=== PATIENT | female | born 1990 | race Caucasian/White ===

== ENCOUNTER 2018-01-07 02:34 | Emergency (ER) | payer MEDICAID ==
[2018-01-07 02:46] VITALS: BP 114/56
[2018-01-07] MEDS ORDERED: Sodium Chloride 0.9% 1,000 ML IV ONE (02:55)
[2018-01-07] MEDS ORDERED: cefTRIAXone 1 GM in Sodium Chloride 0.9% 100 ML IV ONE (02:56)
[2018-01-07] MEDS ORDERED: Albuterol/Ipratropium 3.0-0.5 MG/3 ML Neb Soln NEB ONE (02:58)
[2018-01-07] MEDS ORDERED: cefTRIAXone 1 GM AdvVial IV ONE (03:01)
--- NOTE | 2018-01-07 03:06 | EDM.PDOC ---
ED HPI GENERAL MEDICAL PROBLEM - General Chief Complaint: Respiratory Problem Stated Complaint: 13 WEEKS PREG CHEST PAIN LUNGS AND VOMMITTING Time Seen by Provider: 01/07/18 02:39 Source of Information: Reports: Patient History Limitations: Reports: No Limitations - History of Present Illness INITIAL COMMENTS - FREE TEXT/NARRATIVE: Patient partially 13 week with her fourth presents with acute onset of severe stuffy nose postnasal drainage sore throat productive cough of yellow-green phlegm along with now increasing shortness of breath and posttussive emesis. This all seemed to started this morning and progressed rapidly. Patient has had severe bronchitis in the past. She is a past smoker. She did have asthma as a child. Has not had any comp cases or troubles with this and is otherwise on vitamins. No diarrhea, no urinary symptoms. Pain from coughing so hard no abdominal pain. No vaginal bleeding or vaginal discharge. Generalized Pain Score (Numeric/FACES): 6 - Related Data Allergies Allergy/AdvReac Type Severity Reaction Status Date / Time fentanyl Allergy Hives Verified 01/07/18 02:46 hydromorphone HCl Allergy Hives Verified 01/07/18 02:46 [From Dilaudid] nalbuphine HCl [From Nubain] Allergy Hives Verified 01/07/18 02:46 oxycodone HCl [From Percocet] Allergy Hives Verified 01/07/18 02:46 Penicillins Allergy Hives Verified 01/07/18 02:46 codeine AdvReac Nausea Verified 01/07/18 02:46 Home Meds: Home Meds Albuterol [Proventil HFA] 2 puff INH Q4H PRN #1 inhaler 01/07/18 [Rx] Cephalexin [Keflex] 750 mg PO BID #14 capsule 01/07/18 [Rx] Vit #108/Iron/FA [ One Tablet] 1 tab PO DAILY 01/07/18 [History ] Past Medical History - Past Health History Medical/Surgical History: Denies Medical/Surgical History Respiratory History: Reports: Bronchitis, Recurrent, Pneumonia, Recurrent CLINICAL REHABILITATION LIAISON History: Reports: Musculoskeletal History: Reports: Fracture - Infectious Disease History Infectious Disease History: Reports: Measles - Past Surgical History HEENT Surgical History: Reports: Tonsillectomy GI Surgical History: Reports: Appendectomy Social & Family History - Tobacco Use Smoking Status *Q: Former Smoker Used Tobacco, but Quit: Yes Month/Year Tobacco Last Used: 2 year - Caffeine Use Caffeine Use: Reports: None - Recreational Drug Use Recreational Drug Use: No - Living Situation & Occupation Living situation: Reports: , with Family Occupation: Employed ED ROS GENERAL - Review of Systems Review Of Systems: See Below Constitutional: Reports: Fever. Denies: Chills, Night Sweats HEENT: Reports: Rhinitis, Sinus Problem Respiratory: Reports: Shortness of Breath, Cough, Sputum. Denies: Hemoptysis Cardiovascular: Reports: Chest Pain. Denies: Palpitations GI/Abdominal: Reports: Vomiting. Denies: Abdominal Pain, Diarrhea, Nausea : Denies: Dysuria, Urgency Musculoskeletal: Denies: Muscle Pain Neurological: Denies: Dizziness, Headache ED EXAM, GENERAL - Physical Exam Exam: See Below Exam Limited By: No Limitations General Appearance: Alert, WD/WN, No Apparent Distress Ears: Normal External Exam, Normal Canal, Normal TMs Throat/Mouth: Normal Inspection, Normal Voice, Other (Pharyngeal erythema no exudate) Head: Atraumatic Neck: Supple. No: Lymphadenopathy (L), Lymphadenopathy (R) Respiratory/Chest: Lungs Clear, Rhonchi. No: Decreased Breath Sounds, Wheezing , Stridor Cardiovascular: Regular Rate, Rhythm. No: No Edema GI/Abdominal: Normal Bowel Sounds, Soft, Non-Tender Extremities: No Pedal Edema Neurological: Alert, Oriented Psychiatric: Normal Affect, Normal Mood Skin Exam: Warm, Dry Course - Vital Signs Text/Narrative:: Suspect upper respiratory tract infection with now bronchitis acute onset with the current at 13 weeks. Reviewed allergies. Patient has taken Rocephin and Keflex in the past. With rapid onset of symptoms feel a more aggressive measures indicated. We'll treat her with IV fluids, screening CBC and a metabolic panel, give her DuoNeb treatment, hold off on x-rays and she's , treat empirically with Rocephin and follow this with Keflex. Last Recorded V/S: Last Vital Signs Temp 98.8 F 01/07/18 02:42 Pulse 101 H 01/07/18 02:42 Resp 20 01/07/18 02:42 BP 114/56 L 01/07/18 02:42 Pulse Ox 96 01/07/18 02:58 - Orders/Labs/Meds Orders: Active Orders 24 hr Category Date Time Status RT Aerosol Therapy [RC] ASDIRECTED Care 01/07/18 02:58 Active Labs: Laboratory Tests 01/07/18 01/07/18 Range/Units 03:00 03:00 WBC 12.43 H (3.98-10.04) K/mm3 RBC 4.09 (3.98-5.22) M/mm3 Hgb 12.6 (11.2-15.7) gm/L Hct 37.0 (34.1-44.9) % MCV 90.5 (79.4-94.8) fl MCH 30.8 (25.6-32.2) pg MCHC 34.1 (32.2-35.5) g/dl RDW Std Deviation 40.6 (36.4-46.3) fL Plt Count 257 (182-369) K/mm3 MPV 9.6 (9.4-12.3) fl Neut % (Auto) 79.6 H (34.0-71.1) % Lymph % (Auto) 11.7 L (19.3-51.7) % [place] % (Auto) 6.6 (4.7-12.5) % Eos % (Auto) 1.7 (0.7-5.8) Baso % (Auto) 0.2 (0.1-1.2) % Neut # (Auto) 9.90 H (1.56-6.13) K/mm3 Lymph # (Auto) 1.45 (1.18-3.74) K/mm3 [place] # (Auto) 0.82 H (0.24-0.36) K/mm3 Eos # (Auto) 0.21 (0.04-0.36) K/mm3 Baso # (Auto) 0.03 (0.01-0.08) K/mm3 Sodium 138 (136-145) mEq/L Potassium 3.6 (3.5-5.1) mEq/L Chloride 103 (98-107) mEq/L Carbon Dioxide 25 (21-32) mEq/L Anion Gap 13.6 (5-15) BUN 5 L (7-18) mg/dL Creatinine 0.7 (0.55-1.02) mg/dL Est Cr Clr Drug Dosing 112.01 mL/min Estimated GFR (MDRD) > 60 (>60) mL/min BUN/Creatinine Ratio 7.1 L (14-18) Glucose 102 (74-106) mg/dL Calcium 8.5 (8.5-10.1) mg/dL Total Bilirubin 0.5 (0.2-1.0) mg/dL AST 15 (15-37) U/L ALT 19 (14-59) U/L Alkaline Phosphatase 66 (46-116) U/L Total Protein 6.9 (6.4-8.2) g/dl Albumin 3.2 L (3.4-5.0) g/dl Globulin 3.7 gm/dL Albumin/Globulin Ratio 0.9 L (1-2) Meds: Medications Discontinued Medications Generic Name Dose Route Start Last Admin Trade Name Freq PRN Reason Stop Dose Admin Albuterol/Ipratropium 3 ml 01/07/18 02:58 01/07/18 03:07 Duoneb 3.0-0.5 Mg/3 Ml NEB 01/07/18 02:59 3 ml ONETIME ONE Administration Ceftriaxone Sodium Confirm 01/07/18 03:01 Rocephin Administered 01/07/18 03:02 Dose 1 gm IV .STK-MED ONE Ceftriaxone Sodium 1 gm/ 100 mls @ 200 mls/hr 01/07/18 02:56 01/07/18 03:05 Sodium Chloride IV 01/07/18 03:25 200 mls/hr ONETIME ONE Administration Sodium Chloride 1,000 mls @ 1,000 mls/hr 01/07/18 02:55 01/07/18 03:05 Normal Saline IV 01/07/18 03:54 1,000 mls/hr ONETIME ONE Administration - Radiology Interpretation Free Text/Narrative:: Bedside transabdominal ultrasound was performed and shows good movement and heart beat is approximately 130 - Re-Assessments/Exams Free Text/Narrative Re-Assessment/Exam: 01/07/18 03:31 CBC white count is 12,400 hemoglobin and hematocrit are normal Departure - Departure Time of Disposition: 04:05 Disposition: Home, Self-Care 01 Condition: Fair Clinical Impression: Acute bronchitis Qualifiers: Bronchitis organism: unspecified organism Qualified Code(s): J20.9 - Acute bronchitis, unspecified Qualifiers: Weeks of gestation: 13 weeks Qualified Code(s): Z3A.13 - 13 weeks gestation of - Discharge Information Prescriptions: Albuterol [Proventil HFA] 2 puff INH Q4H PRN #1 inhaler PRN Reason: Cough Cephalexin [Keflex] 750 mg PO BID #14 capsule Instructions: Shortness of Breath, Adult, [id number], Acute Bronchitis, Adult , [id number] Forms: ED Department Discharge Additional Instructions: Rest, drink plenty of fluids, may use Robitussin for cough. Follow up with your primary care provider later this week, return sooner however if worsening cough , more short of breath, persistent fevers, vomiting, worse - My Orders Last 24 Hours: My Active Orders 01/07/18 02:58 RT Aerosol Therapy [RC] ASDIRECTED - Assessment/Plan Last 24 Hours: My Active Orders 01/07/18 02:58 RT Aerosol Therapy [RC] ASDIRECTED
== END 2018-01-07 04:18 | disposition home or self-care (01) ==
LOC: JD.ED 02:34
DX: O99.511 Diseases of the respiratory system complicating pregnancy, first trimester (principal); J20.9 Acute bronchitis, unspecified; Z88.0 Allergy status to penicillin; Z88.5 Allergy status to narcotic agent; Z88.8 Allergy status to other drugs, medicaments and biological substances; Z87.891 Personal history of nicotine dependence; Z3A.13 13 weeks gestation of pregnancy
CPT/HCPCS: 36415; 80053; 85025; 94640; 96361; 96365; 99284; J0696; J7030; J7040; 99283; J7620-GY

== ENCOUNTER 2021-04-05 18:20 | Emergency (ER) | payer MEDICAID ==
--- NOTE | 2021-04-05 20:09 | CR ---
Left ankle: 3 views of the left ankle were obtained. Comparison: No prior ankle study is available. Ankle mortise is symmetric. No fracture, dislocation or other bony abnormality is seen. Impression: 1. Nothing acute is seen on left ankle study. Diagnostic code #1
--- NOTE | 2021-04-05 20:35 | EDM.PDOC ---
ED HPI GENERAL MEDICAL PROBLEM - General Chief Complaint: Lower Extremity Injury/Pain Stated Complaint: L ANKLE INJURY Time Seen by Provider: 04/05/21 19:30 Source of Information: Reports: Patient, RN Notes Reviewed History Limitations: Reports: No Limitations - History of Present Illness INITIAL COMMENTS - FREE TEXT/NARRATIVE: Patient is a 30-year-old female presenting to the emergency department with complaints of left ankle pain. Reports she was walking down steps and she missed the last step. She inverted her ankle. Reports hearing a pop. She has been unable to walk on it since that time. Denies any previous injuries to this joint. 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 Left Ankle Pain Score (Numeric/FACES): 6 - Related Data Allergies Allergy/AdvReac Type Severity Reaction Status Date / Time fentanyl Allergy Hives Verified 11/23/18 20:43 hydromorphone HCl Allergy Hives Verified 11/23/18 20:43 [From Dilaudid] nalbuphine HCl [From Nubain] Allergy Hives Verified 11/23/18 20:43 oxycodone HCl [From Percocet] Allergy Hives Verified 11/23/18 20:43 Penicillins Allergy Hives Verified 11/23/18 20:43 codeine AdvReac Nausea Verified 11/23/18 20:43 Home Meds: Home Meds Acetaminophen with Codeine [Tylenol with Codeine #3 Tablet] 1 - 2 each PO Q4H #20 tablet 11/23/18 [Rx] Dextroamphetamine/Amphetamine [Adderall 10 mg Tablet] 10 mg PO DAILY 04/05/21 [History] QUEtiapine [SEROquel] 50 mg PO BEDTIME 04/05/21 [History] lamoTRIgine [Lamotrigine] 10 mg PO BEDTIME 04/05/21 [History] Past Medical History - Past Health History Medical/Surgical History: Denies Medical/Surgical History HEENT History: Reports: Impaired Vision Respiratory History: Reports: Bronchitis, Recurrent, Pneumonia, Recurrent TRANSLATOR DEAF History: Reports: Musculoskeletal History: Reports: Fracture Psychiatric History: Reports: Anxiety, Depression - Infectious Disease History Infectious Disease History: Reports: Chicken Pox, Novel Coronavirus - Past Surgical History HEENT Surgical History: Reports: Tonsillectomy GI Surgical History: Reports: Appendectomy Social & Family History - Family History Family Medical History: No Pertinent Family History - Tobacco Use Tobacco Use Status *Q: Current Every Day Tobacco User Years of Tobacco use: 2 Packs/Tins Daily: 0.5 - Caffeine Use Caffeine Use: Reports: Coffee, Energy Drinks, Soda, Tea - Recreational Drug Use Recreational Drug Use: No - Living Situation & Occupation Living situation: Reports: , with Family Occupation: Employed Review of Systems - Review of Systems Review Of Systems: Comprehensive ROS is negative, except as noted in HPI. ED EXAM, GENERAL - Physical Exam Exam: See Below Exam Limited By: No Limitations General Appearance: Alert, WD/WN, No Apparent Distress Respiratory/Chest: No Respiratory Distress, Lungs Clear, Normal Breath Sounds, No Accessory Muscle Use, Chest Non-Tender Cardiovascular: Normal Peripheral Pulses, Regular Rate, Rhythm, No Edema, No Gallop, No JVD, No Murmur, No Rub Extremities: Other (Mild swelling and tenderness to palpation over the lateral malleolus of the left ankle. No obvious deformity or ecchymosis.) Neurological: Alert, Oriented, Normal Cognition Psychiatric: Normal Affect, Normal Mood Skin Exam: Warm, Dry, Intact, Normal Color, No Rash Course - Vital Signs Last Recorded V/S: Last Vital Signs Temp 98.4 F 04/05/21 20:35 Pulse 95 04/05/21 20:35 Resp 16 04/05/21 20:35 BP 119/80 04/05/21 20:35 Pulse Ox 100 04/05/21 20:35 - Orders/Labs/Meds Orders: Active Orders 24 hr Category Date Time Status Communication Order [RC] ASDIRECTED Care 04/05/21 19:22 Active Communication Order [RC] ASDIRECTED Care 04/05/21 19:22 Active Communication Order [RC] ROUTINE Care 04/05/21 19:22 Active DME for Discharge [COMM] Routine Oth 04/05/21 20:35 Ordered Peripheral IV Insertion Adult [OM.PC] Stat Oth 04/05/21 19:22 Ordered - Re-Assessments/Exams Free Text/Narrative Re-Assessment/Exam: 04/05/21 20:37 Radiologist read of right ankle x-ray shows no acute abnormalities. Discussed with patient that she is likely suffering from his train of her lateral ligaments. She was placed in stirrup splint and provided crutches. Recommend follow-up in 1 week if not significantly improved. Discharge instructions as document. Departure - Departure Time of Disposition: 20:37 Disposition: Home, Self-Care 01 Condition: Good Clinical Impression: Ankle sprain Qualifiers: Encounter type: initial encounter Involved ligament of ankle: unspecified ligament Laterality: left Qualified Code(s): S93.402A - Sprain of unspecified ligament of left ankle, initial encounter - Discharge Information *PRESCRIPTION DRUG MONITORING PROGRAM REVIEWED*: No *COPY OF PRESCRIPTION DRUG MONITORING REPORT IN PATIENT CHERRIE: No Instructions: Ankle Sprain Referrals: Nikki Shields PA-C [Primary Care Provider] - Forms: ED Department Discharge Additional Instructions: Wear the stirrup splint to support the joint. Use crutches as needed. Ice and elevate the extremity when at rest for the next few days. Use Tylenol and ibuprofen as needed for discomfort. If not significantly better in 1 week, recommend follow-up in the clinic. Sepsis Event Note (ED) - Focused Exam Vital Signs: Vital Signs Temp Pulse Resp BP Pulse Ox 04/05/21 20:35 98.4 F 95 16 119/80 100 - My Orders Last 24 Hours: My Active Orders 04/05/21 19:22 Communication Order [RC] ASDIRECTED Communication Order [RC] ASDIRECTED Communication Order [RC] ROUTINE Peripheral IV Insertion Adult [OM.PC] Stat 04/05/21 20:35 DME for Discharge [COMM] Routine - Assessment/Plan Last 24 Hours: My Active Orders 04/05/21 19:22 Communication Order [RC] ASDIRECTED Communication Order [RC] ASDIRECTED Communication Order [RC] ROUTINE Peripheral IV Insertion Adult [OM.PC] Stat 04/05/21 20:35 DME for Discharge [COMM] Routine
[2021-04-05 20:37] VITALS: BP 119/80; PULSE 95
== END 2021-04-05 21:05 | disposition home or self-care (01) ==
LOC: JD.ED 18:20
DX: S93.402A Sprain of unspecified ligament of left ankle, initial encounter (principal); Z88.0 Allergy status to penicillin; Z88.5 Allergy status to narcotic agent; Z88.8 Allergy status to other drugs, medicaments and biological substances; Z86.16 Personal history of COVID-19; Z72.0 Tobacco use; X50.1XXA Overexertion from prolonged static or awkward postures, initial encounter
CPT/HCPCS: 73610-26-LT; 73610-LT; 99283-25

== ENCOUNTER 2022-05-16 11:05 | Emergency (ER) | payer MEDICAID ==
[2022-05-16] MEDS ORDERED: Acetaminophen 325 MG Tab PO ONE (13:45)
[2022-05-16] MEDS ORDERED: hydrOXYzine HCl 25 MG Tab PO ONE (15:20)
[2022-05-16 15:26] VITALS: BP 135/73; PULSE 93
== END 2022-05-16 16:30 ==
LOC: JD.ED 11:05
DX: F32.A Depression, unspecified (principal); F41.9 Anxiety disorder, unspecified; R45.851 Suicidal ideations; Z88.0 Allergy status to penicillin; Z88.5 Allergy status to narcotic agent; Z88.8 Allergy status to other drugs, medicaments and biological substances; Z86.16 Personal history of COVID-19; Z20.822 Contact with and (suspected) exposure to COVID-19
CPT/HCPCS: 36415; 80053; 80143; 80179; 80306; 80307; 81025; 84443; 85007; 85027; 87635; 93005; 99285; A9270; U0002

== ENCOUNTER 2022-09-21 01:27 | Emergency (ER) | payer MEDICAID ==
[2022-09-21] MEDS ORDERED: Ondansetron 4 MG/2 ML SDV IVPUSH ONE (01:40)
[2022-09-21] MEDS ORDERED: Sodium Chloride 0.9% 1,000 ML IV SCH (01:45)
[2022-09-21 01:55] LABS: BASOPHILS ABSOLUTE AUTO 0.05 K/mm3 (0.01-0.08); BASOPHILS PERCENT AUTO 0.6 % (0.1-1.2); EOSINOPHILS ABSOLUTE AUTO 0.12 K/mm3 (0.04-0.36); EOSINOPHILS PERCENT AUTO 1.4 (0.7-5.8); HEMOGLOBIN 13.1 gm/dl (11.2-15.7); IMMATURE GRAN ABSOLUTE AUTO 0.02 K/mm3 (0.00-0.10); IMMATURE GRAN PERCENT AUTO 0.2 % (<=1.0); LYMPHOCYTES ABSOLUTE AUTO 3.96 K/mm3 (1.18-3.74); LYMPHOCYTES PERCENT AUTO 44.8 % (19.3-51.7); MEAN CORPUSCULAR HEMOGLOBIN 30.3 pg (25.6-32.2); MEAN CORPUSCULAR HGB CONC 32.8 g/dl (32.2-35.5); MEAN CORPUSCULAR VOLUME 92.6 fl (79.4-94.8); MEAN PLATELET VOLUME 9.1 fl (9.4-12.3); MONOCYTES ABSOLUTE AUTO 0.63 K/mm3 (0.24-0.36); MONOCYTES PERCENT AUTO 7.1 % (4.7-12.5); NEUTROPHILS ABSOLUTE AUTO 4.05 K/mm3 (1.56-6.13); NEUTROPHILS PERCENT AUTO 45.9 % (34.0-71.1); PLATELET COUNT,PLT 314 K/mm3 (182-369); RED BLOOD CELL COUNT 4.32 M/mm3 (3.98-5.22); WHITE BLOOD CELL COUNT,WBC 8.83 K/mm3 (3.98-10.04)
[2022-09-21 02:16] LABS: A/G RATIO 1.1 (1-2); ALBUMIN 3.7 g/dl (3.4-5.0); ANION GAP 14.1 (5-15); BILIRUBIN TOTAL 0.3 mg/dL (0.2-1.0); BUN/CREATININE RATIO 12.2 (14-18); CALCIUM 8.5 mg/dL (8.5-10.1); CREATININE 0.9 mg/dL (0.55-1.02); EST CRCL DRUG DOSING (CG) 83.23 mL/min; ETHANOL BLOOD MEDICAL 0.12 gm% (0.00); MAGNESIUM 2.1 mg/dL (1.8-2.4); POTASSIUM,K 3.1 mEq/L (3.5-5.1)
[2022-09-21] MEDS ORDERED: Potassium Chloride 20 MEQ Tab.ER PO ONE (04:08)
[2022-09-21] MEDS ORDERED: Ibuprofen 600 MG Tab PO ONE (05:18)
[2022-09-21 05:40] LABS: BARBITURATE SCREEN,URINE NEGATIVE (CUTOFF=200); BENZODIAZEPINES SCREEN,URINE NEGATIVE (CUTOFF=150); BUPRENORPHINE SCREEN,URINE NEGATIVE (CUTOFF=10); METHADONE SCREEN, URINE NEGATIVE (CUTOFF=200); METHAMPHETAMINES SCREEN, URINE NEGATIVE (CUTOFF=500); OXYCODONE SCREEN,URINE NEGATIVE (CUT0FF=100); PROPOXYPHENE SCREEN,URINE NEGATIVE (CUTOFF=300); THC SCREEN,URINE 20 NG/ML NEGATIVE (CUTOFF=50)
[2022-09-21 05:43] LABS: AMPHETAMINES SCREEN, URINE NEGATIVE (CUTOFF=500)
[2022-09-21] MEDS ORDERED: Ondansetron 4 MG Tab.DIS PO ONE (06:46)
[2022-09-21 08:37] VITALS: BP 118/80; PULSE 82
== END 2022-09-21 07:00 | disposition home or self-care (01) ==
LOC: JD.ED 01:27
DX: R11.2 Nausea with vomiting, unspecified (principal); F10.129 Alcohol abuse with intoxication, unspecified; Z88.6 Allergy status to analgesic agent; Z88.0 Allergy status to penicillin; Z88.5 Allergy status to narcotic agent; Z79.899 Other long term (current) drug therapy; Z86.16 Personal history of COVID-19; Z90.49 Acquired absence of other specified parts of digestive tract; Z87.891 Personal history of nicotine dependence
CPT/HCPCS: 36415; 80053; 80306; 80307; 83735; 85025; 96361; 96374; 99284; A9270; J2405; J7030; 99283

== ENCOUNTER 2023-04-06 14:39 | Emergency (ER) | payer BC, MEDICAID ==
[2023-04-06] MEDS ORDERED: Ketorolac 60 MG/2 ML SDV IM ONE (18:03)
[2023-04-06 19:34] VITALS: BP 112/80; PULSE 91
== END 2023-04-06 19:16 | disposition home or self-care (01) ==
LOC: JD.ED 14:39
DX: S00.12XA Contusion of left eyelid and periocular area, initial encounter (principal); S10.91XA Abrasion of unspecified part of neck, initial encounter; S50.312A Abrasion of left elbow, initial encounter; S60.512A Abrasion of left hand, initial encounter; Z86.16 Personal history of COVID-19; Z88.6 Allergy status to analgesic agent; Z88.5 Allergy status to narcotic agent; Z88.0 Allergy status to penicillin; Z88.8 Allergy status to other drugs, medicaments and biological substances; Y04.0XXA Assault by unarmed brawl or fight, initial encounter; Y92.59 Other trade areas as the place of occurrence of the external cause
CPT/HCPCS: 73080; 73090; 73130; 96372; 99283; J1885

== ENCOUNTER 2024-12-30 16:37 | Emergency (ER) | payer BC ==
[2024-12-30 16:54] VITALS: BP 116/88; PULSE 124
[2024-12-30 17:39] LABS: BASOPHILS ABSOLUTE AUTO 0.1 K/mm3 (0.0-0.2); BASOPHILS PERCENT AUTO 0.7 % (0.0-1.0); EOSINOPHILS ABSOLUTE AUTO 0.0 K/mm3 (0.0-0.4); EOSINOPHILS PERCENT AUTO 0.5 % (0.0-6.0); IMMATURE GRAN ABSOLUTE AUTO 0.03 K/mm3 (0.00-0.05); IMMATURE GRAN PERCENT AUTO 0.3 % (0.0-0.4); LYMPHOCYTES ABSOLUTE AUTO 2.5 K/mm3 (1.0-4.8); LYMPHOCYTES PERCENT AUTO 28.4 % (24.0-44.0); MEAN PLATELET VOLUME 9.3 fl (9.4-12.3); MONOCYTES ABSOLUTE AUTO 0.6 K/mm3 (0.0-0.8); MONOCYTES PERCENT AUTO 7.0 % (0.0-8.0); NEUTROPHILS ABSOLUTE AUTO 5.6 K/mm3 (1.8-7.7); NEUTROPHILS PERCENT AUTO 63.1 % (41.0-71.0); NRBC ABSOLUTE 0.00 (0.00-0.02); NRBC PERCENT 0.0 % (0.0-0.2); PLATELET COUNT,PLT 289 K/mm3 (150-400); RED BLOOD CELL COUNT 4.91 M/mm3 (4.10-5.30); WHITE BLOOD CELL COUNT,WBC 8.86 K/mm3 (3.9-11.3)
[2024-12-30] MEDS: Lactated Ringers 1,000 ML IV STA (17:51)
[2024-12-30] MEDS: Sodium Chloride 0.9% 10 ML Syringe FLUSH PRN (17:52)
[2024-12-30 18:14] LABS: LACTIC ACID 0.7 mmol/L (0.4-2.0)
[2024-12-30 18:21] LABS: A/G RATIO 1.2 (1-2); ALANINE AMINOTRANSFERASE,ALT 28.0 U/L (14-59); ASPARTATE AMNIOTRANSFERASE,AST 20.0 U/L (15-37); BILIRUBIN TOTAL 0.7 mg/dL (0.2-1.0); BLOOD UREA NITROGEN,BUN 7.0 mg/dL (7-18); CARBON DIOXIDE,CO2 26.0 mEq/L (21-32); CHLORIDE,CL 104.0 mEq/L (98-107); CREATININE 0.8 mg/dL (0.55-1.02); EST CRCL DRUG DOSING (CG) 91.88 mL/min; ESTIMATED GFR 98.0 mL/min (>60); GLUCOSE RANDOM 89.0 mg/dL (70-99); POTASSIUM,K 3.8 mEq/L (3.5-5.1); PROTEIN TOTAL,TP 7.4 g/dl (6.4-8.2); SODIUM,NA 141.0 mEq/L (136-145); TROPONIN I HIGH SENSITIVITY 5.0 pg/mL (<=51); TSH 3.222 uIU/mL (0.358-3.74)
[2024-12-30 18:43] LABS: BUPRENORPHINE SCREEN,URINE NEGATIVE (CUTOFF=10); METHADONE SCREEN, URINE NEGATIVE (CUTOFF=200); METHAMPHETAMINES SCREEN, URINE NEGATIVE (CUTOFF=500); OXYCODONE SCREEN,URINE NEGATIVE (CUT0FF=100); THC SCREEN,URINE 20 NG/ML NEGATIVE (CUTOFF=50)
[2024-12-30 19:31] LABS: APPEARANCE,URINE CLEAR (Clear); GLUCOSE,URINE NEGATIVE (Negative); OCCULT BLOOD,URINE NEGATIVE (Negative)
[2024-12-30 19:33] LABS: AMPHETAMINES SCREEN, URINE PRESUMPTIVE POSITIVE (CUTOFF=500)
== END 2024-12-30 19:54 | disposition home or self-care (01) ==
LOC: JD.ED 16:37
DX: R55 Syncope and collapse (principal); F17.210 Nicotine dependence, cigarettes, uncomplicated; Z88.6 Allergy status to analgesic agent; Z88.5 Allergy status to narcotic agent; Z88.0 Allergy status to penicillin; Z88.8 Allergy status to other drugs, medicaments and biological substances; Z79.899 Other long term (current) drug therapy; Z86.16 Personal history of COVID-19
CPT/HCPCS: 36415; 70450; 80053; 80306; 81003; 83605; 83735; 84443; 84484; 85025; 93005; 96360; 99284; J7120